=== PATIENT | male | born 2005 | race Caucasian/White ===

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

== ENCOUNTER 2023-05-15 15:45 | Emergency (ER) | payer MEDICAID, OTHER ==
[~2023-05-15] VITALS: Ht 185 cm; Wt 75.0 kg
--- NOTE | 2023-05-15 16:02 | ED GU-Male ---
General Chief Complaint: General Problems/Pain Stated Complaint: GENITAL INJ/SWELLING History of Present Illness Date Seen by Provider: May 15, 2023 Time Seen by Provider: 16:00 Initial Comments 18-year-old male presents with scrotal/testicular injury. Patient was involved in a bareback riding in a rodeo yesterday when he suffered the injury. He comes in today because he is having significant pain swelling and discoloration of his left testicle and scrotal area. (BLANCHE PEMBERTON DO) Allergies and Home Medications Allergies Coded Allergies: Penicillins (Verified Allergy, Intermediate, Vomiting, 07/31/21) Patient Home Medication List Home Medication List Reviewed: Yes (BLANCHE PEMBERTON DO) Hydrocodone/Acetaminophen (Hydrocodone-Acetamin 5-325 mg) 1 Each Tablet, 1 TAB PO Q4H PRN for PAIN-MODERATE (5-7) Prescribed by: YFN MALHOTRA on 09/16/21 1328 Oxycodone HCl (Oxycodone HCl) 5 Mg Tablet, 5 MG PO Q4H PRN for PAIN-MODERATE (5- 7) Prescribed by: MICHOACANO VALLECILLO MD on 08/12/21 0938 Review of Systems Review of Systems Constitutional: no symptoms reported EENTM: no symptoms reported Respiratory: no symptoms reported Gastrointestinal: no symptoms reported Genitourinary: see HPI, pain Musculoskeletal: no symptoms reported Skin: no symptoms reported Psychiatric/Neurological: No Symptoms Reported (BLANCHE PEMBERTON DO) Past Tkrsaiv-Razrtz-Nseyxg Hx Patient Social History Tobacco Use?: No Use of E-Cig and/or Vaping dev: No Substance use?: No Alcohol Use?: No Pt feels they are or have been: No (BLANCHE PEMBERTON DO) Seasonal Allergies Seasonal Allergies: No (BLANCHE PEMBERTON DO) Past Medical History Surgeries: No Respiratory: No Currently Using CPAP: No Currently Using BIPAP: No Cardiac: No Neurological: No Genitourinary: No Gastrointestinal: No Musculoskeletal: Yes (PREVIOUS CLOSED REDUCTION OF LEFT FOREARM FX) Fractures Endocrine: No HEENT: No Cancer: No Psychosocial: No Integumentary: No Blood Disorders: No (BLANCHE PEMBERTON DO) Physical Exam Vital Signs Vital Signs - First Documented 05/15/23 15:56 Temp 36.7 Pulse 55 Resp 16 B/P (MAP) 124/57 (79) Pulse Ox 100 O2 Delivery Room Air (ANAIS KOLB) Vital Signs Capillary Refill : (PEMBERTON,BLANCHE L DO) Height, Weight, BMI Height: '" Weight: lbs. oz. kg; 19.00 BMI Method: General Appearance: WD/WN, no apparent distress Respiratory: lungs clear, normal breath sounds Gastrointestinal: non tender, soft Male: testicular tenderness, other (Scrotum with significant contusion swelling and tenderness in the testicle) Extremities: normal range of motion, non-tender Neurologic/Psychiatric: alert, normal mood/affect, oriented x 3 Skin: ecchymosis (Scrotum) (PEMBERTON,BLANCHE L DO) Progress/Results/Core Measures Suspected Sepsis SIRS Temperature: Pulse: Respiratory Rate: Blood Pressure / Mean: (PEMBERTON,BLANCHE L DO) Results/Orders Lab Results Laboratory Tests Test 05/15/23 17:08 Range/Units Urine Color YELLOW Urine Clarity CLEAR Urine pH 7.5 5-9 Urine Specific [place] 1.005 L 1.016-1.022 Urine Protein NEGATIVE NEGATIVE Urine Glucose (UA) NEGATIVE NEGATIVE Urine Ketones NEGATIVE NEGATIVE Urine Nitrite NEGATIVE NEGATIVE Urine Bilirubin NEGATIVE NEGATIVE Urine Urobilinogen 0.2 < = 1.0 MG/DL Urine Leukocyte Esterase NEGATIVE NEGATIVE Urine RBC (Auto) NEGATIVE NEGATIVE Urine RBC NONE /HPF Urine WBC NONE /HPF Urine Squamous Epithelial Cells NONE /HPF Urine Crystals NONE /LPF Urine Bacteria NEGATIVE /HPF Urine Casts NONE /LPF Urine Mucus NEGATIVE /LPF Urine Culture Indicated NO (ANAIS KOLB) My Orders Orders - ANAIS KOLB Ua Culture If Indicated (05/15/23 16:59) Us Scrotum (Testicle) [id number] (05/15/23 16:59) (ANAIS KOLB) Vital Signs/I&O 05/15/23 05/15/23 05/15/23 15:56 16:10 17:01 Temp 36.7 36.7 37.0 Pulse 55 55 51 Resp 16 16 16 B/P (MAP) 124/57 (79) 126/57 (80) 117/71 (86) Pulse Ox 100 100 100 O2 Delivery Room Air Room Air (ANAIS KOLB) Vital Signs/I&O Capillary Refill : (PEMBERTONBLANCHE L DO) Departure Communication (PCP) Patient is a 18-year-old male who was transferred from [facility] for further evaluation of scrotal injury. Their was no ultrasound services at their facility was transferred to our facility for ultrasound rule out testicle or torsion. Patient was bareback riding a horse yesterday at a rodeo when he came down awkwardly injuring his scrotum. Patient noted some bruising and swelling to his left sided scrotum. Reports pain at the time. Pain appears to be improving noted increased bruising and swelling. Urinating without any difficulties. On arrival no acute distress. Did order urinalysis which was unremarkable. Ultrasound was ordered which did not show any evidence of testicular torsion. No evidence of varicocele or hydrocele. No testicular mass. Concern for left scrotal soft tissue edema of or hematoma. Due to not having any urology services consulted with urologist Dr. Mckeon at [facility] regarding patient's results. At this time recommended conservative treatment ice, anti-inflammatories, supportive underwear. Recommend following up with urology at [facility] next week. If any increasing pain, difficulty urinating to return back to ED. Patient agrees with plan of action. (ANAIS KOLB) Impression Primary Impression: Contusion of scrotum and testes, initial encounter Additional Impression: Scrotal edema Disposition: 01 HOME, SELF-CARE Condition: Stable Departure-Patient Inst. Decision time for Depature: 19:05 (ANAIS KOLB) Referrals: [facility] [place] NO,LOCAL PHYSICIAN (PCP) Primary Care Physician Patient Instructions: Testicular Injury Add. Discharge Instructions: Please keep scrotum elevated, ice, Tylenol ibuprofen as needed for discomfort. Recommend following up with [facility] urology at [phone]. Anti-inflammatories for pain. Ice and rest All discharge instructions reviewed with patient and/or family. Voiced understanding. BLANCHE PEMBERTON DO May 15, 2023 16:02 ANAIS KOLB May 15, 2023 17:06
[2023-05-15 17:01] VITALS: BP 117/71
[2023-05-15 17:23] LABS: BACTERIA,URINE NEGATIVE /HPF; BILIRUBIN,URINE NEGATIVE (NEGATIVE); CLARITY,URINE CLEAR; COLOR,URINE YELLOW; GLUCOSE, URINE (UA) NEGATIVE (NEGATIVE); KETONES,URINE NEGATIVE (NEGATIVE); LEUKOCYTE ESTERASE ,URINE NEGATIVE (NEGATIVE); NITRITE,URINE NEGATIVE (NEGATIVE); PH,URINE 7.5 (5-9); PROTEIN,URINE NEGATIVE (NEGATIVE)
--- NOTE | 2023-05-15 18:04 | Diagnostic Imaging Report ---
EXAMINATION: US scrotum w/duplex. TECHNIQUE: Multiple realtime khan images were obtained of the scrotum in various projections bilaterally. Color Doppler images were also obtained. HISTORY: Left testicle pain. COMPARISON: None available. FINDINGS: The right testis has a homogeneous echogenic appearance without intratesticular mass or hyperemia, and measures 4.5 x 2.2 x 2.7 cm. The right epididymis is normal. No extratesticular mass. No hydrocele or varicocele. The left testis has a homogeneous echogenic appearance without intratesticular mass or hyperemia, and measures 4.6 x 2.2 x 2.8 cm. The left epididymis is normal. No extratesticular mass. No hydrocele or varicocele. Color and pulsed Doppler imaging demonstrates symmetric, flow with normal arterial waveforms obtained from each testis. There is abnormal thickening of the left scrotal soft tissues. IMPRESSION: 1. Unremarkable appearance of the bilateral testes. 2. Abnormal thickening of the left scrotal soft tissues can be seen with edema or hematoma. Dictated by: Dictated on workstation # [id number]
== END 2023-05-15 19:15 | disposition home or self-care (01) ==
LOC: EDUNIT# 15:45 → ER FS 15:47 → ER 19:15
DX: S30.22XA Contusion of scrotum and testes, initial encounter (principal); N50.89 Other specified disorders of the male genital organs; X58.XXXA Exposure to other specified factors, initial encounter; Y93.52 Activity, horseback riding; Y92.39 Other specified sports and athletic area as the place of occurrence of the external cause
CPT/HCPCS: 76870; 81000